=== PATIENT | female | born 1980 | race Caucasian/White ===

== ENCOUNTER → 2020-10-10 | Outpatient (CLI) | payer OTHER ==
[~2020-10-10] MED LIST: ALBU8.5H4 IH; AMOX500C2 PO; BREA1EAC5 MC; BUTA1CAP39 PO; CETI10CA PO; DCS100C PO; HYDR-3720 PO; IBP800T PO; LORA-405 PO; PRD20T PO; PREN1TAB25 PO; SERT50TA PO
--- NOTE | 2020-10-10 15:51 | Diagnostic Imaging Report ---
INDICATION: Routine screening. Comparison is made with prior mammogram from 09/08/2018. 2-D and 3-D bilateral screening mammography was performed with CAD. Both breasts are heterogeneously dense, limiting the sensitivity of mammography. The parenchymal pattern is stable. No mass or malignant appearing microcalcifications are seen. Axillae are unremarkable. IMPRESSION: BI-RADS Category 1 No mammographic features suspicious for malignancy are identified. ACR BI-RADS Category 1: Negative. Result letter will be mailed to the patient. Note: At least 10% of breast cancer is not imaged by mammography. Dictated by: Dictated on workstation # [id number]
== END ==
LOC: RAD 14:46
PROVIDERS: ATTEND Family Medicine
DX: Z12.31 Encounter for screening mammogram for malignant neoplasm of breast (principal)
CPT/HCPCS: 77063; 77067

== ENCOUNTER → 2022-10-18 | Outpatient (CLI) | payer OTHER ==
--- NOTE | 2022-10-18 12:04 | Diagnostic Imaging Report ---
INDICATION: Routine screening. COMPARISON: 10/10/2020 and 09/08/2018. TECHNIQUE: 2D and 3D bilateral screening mammography was performed with CAD. FINDINGS: Both breasts are heterogeneously dense, limiting the sensitivity of mammography. There is an oval circumscribed nodule in the upper posterior left breast on the MLO view. This appears to be laterally located on the tomographic images but not well-seen on the CC. Additional views are recommended for further evaluation. The right breast is unremarkable. The axillae are unremarkable. IMPRESSION: Left breast density. Additional views are recommended for further evaluation. ACR BI-RADS Category 0: Incomplete. (Needs additional imaging evaluation). Result letter will be mailed to the patient. Note: At least 10% of breast cancer is not imaged by mammography. Dictated by: Dictated on workstation # [id number]
== END ==
LOC: RAD 07:26
PROVIDERS: ATTEND Family Medicine
DX: Z12.31 Encounter for screening mammogram for malignant neoplasm of breast (principal)
CPT/HCPCS: 77063; 77067

== ENCOUNTER → 2022-10-31 | Outpatient (CLI) | payer OTHER ==
--- NOTE | 2022-10-31 13:45 | Diagnostic Imaging Report ---
INDICATION: Abnormal mammogram. Correlation is made with diagnostic mammogram earlier same day. Sonographic interrogation of the upper outer left breast was performed. There is a cyst at 1:00 location, 8-9 cm from the nipple measuring 1.4 x 1.2 x 1.4 cm. This does show posterior acoustic enhancement. No internal vascularity is identified. This likely accounts for the mammographic density. Adjacent to this are 2 smaller cysts measuring 3 mm and 5 mm in size. No solid lesions are seen. IMPRESSION: BI-RADS Category 2 Simple cyst in the upper outer left breast, corresponding to the mammographic density. The patient may return to routine annual screening mammography. ACR BI-RADS Category 2: Benign findings. Dictated by: Dictated on workstation # [id number]
--- NOTE | 2022-10-31 14:45 | Diagnostic Imaging Report ---
Indication: Left breast density. Patient presents for additional views. Correlation is made with prior screening mammogram from 09/28/2022. Unilateral left 2-D and 3-D diagnostic mammography was performed. This included spot compression exaggerated CC and mediolateral views as well as conventional mediolateral views and exaggerated CC views. CAD. The current study was also evaluated with a Computer Aided Detection (CAD) system. Additional views show persistent circumscribed nodule in the upper outer left breast posterior depth approximately 12 to 13 cm from the nipple. No other masses are seen. IMPRESSION: BI-RADS 0 Persistent circumscribed nodule in the upper outer left breast posterior depth, likely a cyst. Further evaluation with ultrasound is recommended and will be performed today. ACR BI-RADS Category 0: Incomplete. (Needs additional imaging evaluation). Result letter will be mailed to the patient. Note: At least 10% of breast cancer is not imaged by mammography. Dictated by: Dictated on workstation # [id number]
== END ==
LOC: RAD 12:22
PROVIDERS: ATTEND Family Medicine
DX: N60.02 Solitary cyst of left breast (principal)
CPT/HCPCS: 76642; 77065; G0279